=== PATIENT | female | born 1980 | race Hispanic/Latino ===

== ENCOUNTER 2025-08-18 21:33 | Emergency (ER) | payer SELFPAY ==
[2025-08-18] MEDS ORDERED: predniSONE 20 MG TAB ONE (22:45)
== END 2025-08-18 23:31 | disposition home or self-care (01) ==
LOC: MADERS 21:33
DX: G43.909 Migraine, unspecified, not intractable, without status migrainosus (principal); F41.9 Anxiety disorder, unspecified; F43.0 Acute stress reaction; I10 Essential (primary) hypertension
CPT/HCPCS: 70450; 96372; J3360; J7512